=== PATIENT | male | born 1930 | race Caucasian/White ===

== ENCOUNTER → 2017-07-13 | Outpatient (CLI) | payer OTHER, BC ==
[2016-01-03 11:42] VITALS: BP 122/64
--- NOTE | 2017-07-13 19:02 | RAD ---
HISTORY: Pain Study: PA and lateral Comparison: None Findings: The heart is normal. The pulmonary vessels are normal. Postop changes are seen in the mediastinum and sternum . There are mild chronic interstitial changes throughout with mild linear scarring along the lung bases which is unchanged. Degenerative changes are seen throughout the spine. IMPRESSION: Stable chronic changes with no acute abnormality seen. Reported By:
== END ==
LOC: RAD 16:33
PROVIDERS: ATTEND Obstetrics & Gynecology Obstetrics
DX: R07.1 Chest pain on breathing (principal)
CPT/HCPCS: 71020

== ENCOUNTER 2017-07-27 10:14 | Day surgery (SDC) | payer OTHER, BC ==
[2017-07-27] MEDS ORDERED: NS 500 ML IV 500 ML IV ONE (10:55)
[2017-07-27] MEDS ORDERED: TETRACAINE 0.5% OPHTH 1 DOSE AFFEYE ONE ×2 (11:00→14:06)
[2017-07-27] MEDS ORDERED: VIGAMOX 0.5% OPHTH 1 DOSE AFFEYE ONE ×5 (11:05→14:43)
[2017-07-27] MEDS ORDERED: PROLENSA OPHTH 1 DOSE AFFEYE ONE (11:16)
[2017-07-27] MEDS ORDERED: ALPHAGAN-P OPHTH 1 DOSE AFFEYE ONE (11:17)
[2017-07-27] MEDS ORDERED: AK-DILATE 2.5% OPHTH 1 DOSE OP ONE ×3 (11:18→11:20)
[2017-07-27] MEDS ORDERED: MYDRIACIL OPHTH 1 DOSE AFFEYE ONE ×3 (11:18→11:20)
[2017-07-27] MEDS ORDERED: CYCLOGYL 1% OPHTH 1 DOSE OP ONE ×3 (11:18→11:20)
[2017-07-27] MEDS ORDERED: DIPRIVAN VIAL ONE (13:37)
[2017-07-27] MEDS ORDERED: BETADINE OPHTH SOLN 5% EACHEYE ONE (14:06)
[2017-07-27] MEDS ORDERED: ADRENALINE CHL INJ IJ ONE ×2 (14:14→14:23)
[2017-07-27] MEDS ORDERED: XYLOCAINE-MPF 1% IJ ONE ×2 (14:14→14:23)
[2017-07-27] MEDS ORDERED: DUOVISC IO ONE ×2 (14:14→14:23)
[2017-07-27] MEDS ORDERED: BSS OPHTH (PLAIN) 500 ML with VANCOMYCIN HCL 500 MG VIAL 25 MG, ADRENALINE CHL INJ 1 MG IR ONE ×6 (14:16)
[2017-07-27] MEDS ORDERED: VISCOAT 0.5 ML IO ONE (14:35)
[2017-07-27 18:01] VITALS: BP 160/80
== END 2017-07-27 15:10 | disposition home or self-care (01) ==
LOC: SURG1 10:14
PROVIDERS: ATTEND Ophthalmology
PROC: 08DK3ZZ Extraction of Left Lens, Percutaneous Approach (ICD-10-PCS; principal; 2017-07-27 23:00)
PROC: 08RK3JZ Replacement of Left Lens with Synthetic Substitute, Percutaneous Approach (ICD-10-PCS; principal; 2017-07-27 23:00)
DX: H25.12 Age-related nuclear cataract, left eye (principal); H25.042 Posterior subcapsular polar age-related cataract, left eye
CPT/HCPCS: 99100; A4217; J0170; J3370; J3490

== ENCOUNTER 2017-08-17 08:33 | Day surgery (SDC) | payer OTHER, BC ==
[2017-08-17] MEDS ORDERED: TETRACAINE 0.5% OPHTH 1 DOSE AFFEYE ONE ×2 (09:00→11:32)
[2017-08-17] MEDS ORDERED: VIGAMOX 0.5% OPHTH 1 DOSE AFFEYE ONE ×5 (09:05→12:05)
[2017-08-17] MEDS ORDERED: NS 500 ML IV 500 ML IV ONE (09:08)
[2017-08-17] MEDS ORDERED: PROLENSA OPHTH 1 DOSE AFFEYE ONE (09:16)
[2017-08-17] MEDS ORDERED: ALPHAGAN-P OPHTH 1 DOSE AFFEYE ONE (09:17)
[2017-08-17] MEDS ORDERED: CYCLOGYL 1% OPHTH 1 DOSE OP ONE ×3 (09:18→09:20)
[2017-08-17] MEDS ORDERED: MYDRIACIL OPHTH 1 DOSE AFFEYE ONE ×3 (09:18→09:20)
[2017-08-17] MEDS ORDERED: AK-DILATE 2.5% OPHTH 1 DOSE OP ONE ×3 (09:18→09:20)
[2017-08-17] MEDS ORDERED: BETADINE OPHTH SOLN 5% EACHEYE ONE (11:32)
[2017-08-17] MEDS ORDERED: XYLOCAINE-MPF 1% IJ ONE (11:40)
[2017-08-17] MEDS ORDERED: DUOVISC IO ONE (11:40)
[2017-08-17] MEDS ORDERED: BSS OPHTH (PLAIN) 500 ML with VANCOMYCIN HCL 500 MG VIAL 25 MG, ADRENALINE CHL INJ 1 MG IR ONE ×3 (11:40)
[2017-08-17] MEDS ORDERED: ADRENALINE CHL INJ IJ ONE (11:40)
[2017-08-17] MEDS ORDERED: MIOCHOL-E IO ONE ×2 (11:45→11:49)
[2017-08-17 12:28] VITALS: BP 149/78
== END 2017-08-17 12:28 | disposition home or self-care (01) ==
LOC: SURG1 08:33
PROVIDERS: ATTEND Ophthalmology
PROC: 08DJ3ZZ Extraction of Right Lens, Percutaneous Approach (ICD-10-PCS; principal; 2017-08-17 15:00)
PROC: 08RJ3JZ Replacement of Right Lens with Synthetic Substitute, Percutaneous Approach (ICD-10-PCS; principal; 2017-08-17 15:00)
DX: H25.11 Age-related nuclear cataract, right eye (principal); H25.041 Posterior subcapsular polar age-related cataract, right eye
CPT/HCPCS: 99100; A4217; J0170; J3370